=== PATIENT | male | born 1980 | race Caucasian/White ===

== ENCOUNTER 2021-11-21 18:45 | Emergency (ER) | payer BC | END 2021-11-21 19:58 | disposition home or self-care (01) | LOC: LB.ED 18:45 | DX: U07.1 COVID-19 (principal) | CPT/HCPCS: 87804; 87804-59; 99283; U0002 ==

== ENCOUNTER 2025-03-20 03:00 | Emergency (ER) | payer BC, OTHER ==
[2025-03-20] MEDS ORDERED: Sodium Chloride 0.9% 10 ML Syringe FLUSH PRN (03:17)
[2025-03-20] MEDS: Propranolol 20 MG Tab PO ONE (03:33)
[2025-03-20] MEDS: hydrOXYzine HCl 25 MG Tab PO ONE (03:34)
[2025-03-20 03:39] LABS: HEMATOCRIT 47.7 % (40.0-54.0); HEMOGLOBIN 15.9 g/dL (13.0-18.0); MEAN CORPUSCULAR HEMOGLOBIN 29.7 pg (27.0-32.0); MEAN CORPUSCULAR HGB CONC 33.3 g/dL (31.0-35.0); MEAN PLATELET VOLUME 9.9 fL (6.0-10.0); RED BLOOD CELL COUNT 5.36 M/uL (4.50-6.50); RED CELL DISTRIBUTION WIDTH 13.9 % (11.0-16.0); WHITE BLOOD CELL COUNT,WBC 8.1 K/uL (4.0-11.0)
[2025-03-20] MEDS: Sodium Chloride 0.9% 1,000 ML IV SCH (03:39)
[2025-03-20 03:58] LABS: ANION GAP 16.6 mmol/L (5.0-15.0); BUN/CREATININE RATIO 16.5 (6-25); CALCIUM 8.7 mg/dL (8.5-10.1); CARBON DIOXIDE,CO2 25.7 mmol/L (21.0-32.0); CREATININE 0.91 mg/dL (0.70-1.30); EST CRCL DRUG DOSING (CG) 111.48 mL/min; MAGNESIUM 1.9 mg/dL (1.8-2.4); POTASSIUM,K 3.3 mmol/L (3.5-5.1); TROPONIN I HIGH SENSITIVITY 4.6 pg/ml (<=60.4)
[2025-03-20 04:14] LABS: AMPHETAMINES SCREEN, URINE NEGATIVE (NEGATIVE); BARBITURATE SCREEN,URINE NEGATIVE (NEGATIVE); BENZODIAZEPINES SCREEN,URINE NEGATIVE (NEGATIVE); METHADONE SCREEN, URINE NEGATIVE (NEGATIVE); METHAMPHETAMINES SCREEN, URINE NEGATIVE (NEGATIVE); OXYCODONE SCREEN,URINE NEGATIVE (NEGATIVE); THC SCREEN,URINE 50 NG/ML NEGATIVE (NEGATIVE)
[2025-03-20] MEDS: Potassium Chloride Riders 10 MEQ in Premix Bag 1 BAG IV ONE (08:04)
[2025-03-20] MEDS: Potassium Chloride 10 MEQ Tab.ER PO ONE (08:19)
[2025-03-22 00:05] LABS: THYROXINE, TOTAL T4 5.18 ug/dL (4.50-11.70)
[2025-03-22 00:05] LABS: TRIIODOTHYRONINE,FREE FREE T3 3.6 pg/mL (2.5-4.3)
== END 2025-03-20 09:39 | disposition home or self-care (01) ==
LOC: LB.ED 03:03
DX: R00.2 Palpitations (principal); F41.9 Anxiety disorder, unspecified; Z88.0 Allergy status to penicillin; Z88.8 Allergy status to other drugs, medicaments and biological substances; Z79.899 Other long term (current) drug therapy; Z79.02 Long term (current) use of antithrombotics/antiplatelets
CPT/HCPCS: 36415; 80048; 80307; 83735; 84436; 84443; 84481; 84484; 85027; 85379; 93005; 93010; 96361; 96365; 99284; 99285-25; A0425; A0429; A9270-GY; J3480; J7030